=== PATIENT | male | born 1985 | race Hispanic/Latino ===

== ENCOUNTER 2017-04-27 13:09 | Emergency (ER) | payer SELFPAY ==
[2017-04-27 13:48] LABS: BASOPHILS % (AUTO) 0.4 % (0.0-5.0); HEMATOCRIT 43.9 % (42-54); LYMPHOCYTES % (AUTO) 16.5 % (21.0-51.0); MEAN CORPUSCULAR HEMOGLOBIN 30.5 pg (27.0-33.0); MEAN CORPUSCULAR HGB CONC 34.1 g/dL (32.0-36.0); MEAN CORPUSCULAR VOLUME 89.4 fL (79-99); MONOCYTES % (AUTO) 8.2 % (3.0-13.0); NEUTROPHILS % (AUTO) 74.9 % (40.0-77.0); PLATELET COUNT (AUTO) 227 K/uL (130-400); RED BLOOD CELL COUNT(AUTO) 4.92 MIL/uL (4.50-6.20); RED CELL DISTRIBUTION WIDTH 13.3 % (11.0-15.5); WHITE BLOOD COUNT (AUTO) 9.9 K/uL (4.8-10.8)
[2017-04-27] MEDS ORDERED: ONDANSETRON HCL MDV 20ML 2 MG/ML VIAL ONE (13:49)
[2017-04-27 13:57] LABS: CARBON DIOXIDE 27 mmol/L (21-32); CHLORIDE 102 mmol/L (101-111); GLOMERULAR FILTR. RATE CALC 93 mL/min (>60); GLUCOSE,RANDOM 102 mg/dL (70-105); POTASSIUM 3.4 mmol/L (3.5-5.1); SODIUM SERUM 140 mmol/L (136-145); UREA NITROGEN, BLOOD 15 mg/dL (7-18)
[2017-04-27 14:01] LABS: ALANINE AMINOTRANSFERASE 17 U/L (12-78); ALBUMIN 4.6 g/dL (3.5-5.0); ASPARTATE AMINOTRANSFERASE 16 U/L (10-37); BILIRUBIN,TOTAL 0.8 mg/dL (0.2-1.0); TOTAL PROTEIN, SERUM 8.5 g/dL (6.0-8.3)
[2017-04-27] MEDS ORDERED: IOPAMIDOL-370 75 ML VIAL IV ONE (14:06)
[2017-04-27 14:12] LABS: LIPASE < 50 U/L (114-286)
[2017-04-27 15:13] LABS: APPEARANCE,URINE Clear (CLEAR); BILIRUBIN,URINE Negative (NEGATIVE); COLOR,URINE Yellow (YELLOW); GLUCOSE, URINE (UA) Negative (NEGATIVE); KETONES,URINE >=80 mg/dL (NEGATIVE); LEUKOCYTE ESTERASE ,URINE Negative (NEGATIVE); NITRATE,URINE Negative (NEGATIVE); OCCULT BLOOD,URINE Negative (NEGATIVE); PROTEIN,URINE Negative (NEGATIVE)
== END 2017-04-27 15:46 | disposition home or self-care (01) ==
LOC: EDH 13:09
DX: R11.2 Nausea with vomiting, unspecified (principal); R10.11 Right upper quadrant pain; R10.31 Right lower quadrant pain; Z88.8 Allergy status to other drugs, medicaments and biological substances
CPT/HCPCS: 36415; 74177; 80053; 81003; 83690; 85025; 96361; 96374; 99285; Q9967

== ENCOUNTER 2017-07-13 22:43 | Emergency (ER) | payer SELFPAY ==
[2017-07-13] MEDS ORDERED: IPRATROPIUM/ALBUTEROL SULFATE 3 ML SOLUTION IH ONE (23:14)
[2017-07-13] MEDS ORDERED: DEXAMETHASONE SOD PHOSPHATE 10MG/ML 1ML VIAL ONE (23:15)
[2017-07-13] MEDS ORDERED: ALBUTEROL SULFATE 0.083% 2.5 MG/3 ML INH IH ONE (23:28)
[2017-07-14] MEDS ORDERED: LIDOCAINE HCL-MPF 1% 2ML VIAL ONE (00:38)
[2017-07-14] MEDS ORDERED: CEFTRIAXONE SODIUM 1 GM ONE (00:38)
== END 2017-07-14 00:57 | disposition home or self-care (01) ==
LOC: EDH 22:43
DX: R05 Cough (principal); R06.2 Wheezing; R50.81 Fever presenting with conditions classified elsewhere; Z72.0 Tobacco use
CPT/HCPCS: 71045; 94640 ×2; 96372 ×2; 99284; J0696; J1100; J3490

== ENCOUNTER 2018-02-19 20:32 | Emergency (ER) | payer OTHER ==
[2018-02-19] MEDS ORDERED: GUAIFENESIN SUGAR-FREE 100 MG/5 ML UDCUP ONE (20:50)
[2018-02-19] MEDS ORDERED: DEXAMETHASONE SOD PHOSPHATE 10MG/ML 1ML VIAL ONE (20:51)
[2018-02-19] MEDS ORDERED: ACETAMINOPHEN EXTRA STRENGTH 500 MG TABLET ONE (20:52)
[2018-02-19] MEDS ORDERED: IPRATROPIUM/ALBUTEROL SULFATE 3 ML SOLUTION IH ONE (20:54)
== END 2018-02-19 22:11 | disposition home or self-care (01) ==
LOC: EDH 20:32
DX: J20.9 Acute bronchitis, unspecified (principal); F41.9 Anxiety disorder, unspecified; Z98.890 Other specified postprocedural states
CPT/HCPCS: 71046; 87804 ×2; 94640; 96372; 99284; J1100

== ENCOUNTER 2018-10-10 16:52 | Emergency (ER) | payer SELFPAY ==
[2018-10-10] MEDS ORDERED: ACETAMINOPHEN EXTRA STRENGTH 500 MG TABLET ONE (17:31)
[2018-10-10] MEDS ORDERED: SODIUM CHLORIDE 0.9% 1000ML 2,000 ML IV ONE (17:31)
[2018-10-10 17:47] LABS: APPEARANCE,URINE Clear (CLEAR); BILIRUBIN,URINE Negative (NEGATIVE); COLOR,URINE Yellow (YELLOW); GLUCOSE, URINE (UA) Negative (NEGATIVE); KETONES,URINE 40 mg/dL (NEGATIVE); LEUKOCYTE ESTERASE ,URINE Negative (NEGATIVE); NITRATE,URINE Negative (NEGATIVE); OCCULT BLOOD,URINE Small (NEGATIVE); PROTEIN,URINE Negative (NEGATIVE)
[2018-10-10 17:51] LABS: BASOPHILS % (AUTO) 0.3 % (0.0-5.0); HEMATOCRIT 39.5 % (42-54); LYMPHOCYTES % (AUTO) 7.5 % (21.0-51.0); MEAN CORPUSCULAR HGB CONC 34.1 g/dL (32.0-36.0); MONOCYTES % (AUTO) 11.4 % (3.0-13.0); NEUTROPHILS % (AUTO) 80.8 % (40.0-77.0); PLATELET COUNT (AUTO) 264 K/uL (130-400); RED BLOOD CELL COUNT(AUTO) 4.49 MIL/uL (4.50-6.20); RED CELL DISTRIBUTION WIDTH 12.7 % (11.0-15.5); WHITE BLOOD COUNT (AUTO) 17.2 K/uL (4.8-10.8)
[2018-10-10 17:55] LABS: CREATININE 1.2 mg/dL (0.5-1.5); POTASSIUM 3.7 mmol/L (3.5-5.1)
[2018-10-10 17:59] LABS: ALBUMIN 4.1 g/dL (3.5-5.0); BACTERIA,URINE Few /HPF (None Seen); BILIRUBIN,TOTAL 0.7 mg/dL (0.2-1.0); SQUAMOUS EPITHELIAL CELL,UR 0-2 /HPF (0-2); TOTAL PROTEIN, SERUM 8.7 g/dL (6.0-8.3)
[2018-10-10] MEDS ORDERED: METOCLOPRAMIDE 10 MG/2 ML VIAL ONE (19:29)
[2018-10-10] MEDS ORDERED: LEVOFLOXACIN 500 MG TABLET ONE (21:02)
[2018-10-12 07:15] LABS: HEPATITIS A ANTIBODY IGM Negative (Negative); HEPATITIS B CORE IGM Negative (Negative); HEPATITIS Bs ANTIGEN SCREEN P Negative (Negative)
== END 2018-10-10 21:16 | disposition home or self-care (01) ==
LOC: EDH 16:52
DX: E86.9 Volume depletion, unspecified (principal); D72.829 Elevated white blood cell count, unspecified; R19.7 Diarrhea, unspecified; R50.9 Fever, unspecified; F41.9 Anxiety disorder, unspecified; Z98.890 Other specified postprocedural states; Z72.0 Tobacco use; Z88.1 Allergy status to other antibiotic agents
CPT/HCPCS: 36415; 71045; 80053; 80074; 81001; 82550; 83605; 83630; 85025; 86701; 87040 ×2; 87324; 87390; 87804 ×2; 96361; 96374; 99285; J2765; J7030

== ENCOUNTER 2019-06-13 13:46 | Inpatient (IN) | payer OTHER ==
[~2019-06-13] VITALS: Ht 175.3 cm; Wt 53.3 kg
[2019-06-13] MEDS ORDERED: ZOSYN 3.375GM+NS 50ML 50 ML IV ONE (14:07)
[2019-06-13] MEDS ORDERED: ACETAMINOPHEN EXTRA STRENGTH 500 MG TABLET ONE (14:18)
[2019-06-13 14:21] LABS: APPEARANCE,URINE Clear (CLEAR); BILIRUBIN,URINE Moderate (NEGATIVE); COLOR,URINE Dark Yellow (YELLOW); GLUCOSE, URINE (UA) Negative (NEGATIVE); KETONES,URINE >=80 mg/dL (NEGATIVE); LEUKOCYTE ESTERASE ,URINE Trace (NEGATIVE); NITRATE,URINE Positive (NEGATIVE); OCCULT BLOOD,URINE Small (NEGATIVE); PH,URINE 5.5 (5.0-8.0); PROTEIN,URINE POS 1+ mg/dL (NEGATIVE)
[2019-06-13 14:34] LABS: BACTERIA,URINE Moderate /HPF (None Seen); MUCUS,URINE Many LPF (None Seen); SQUAMOUS EPITHELIAL CELL,UR Moderate /HPF (0-2)
[2019-06-13 14:35] LABS: BASOPHILS % (AUTO) 0.2 % (0.0-5.0); HEMATOCRIT 40.6 % (42-54); LYMPHOCYTES % (AUTO) 7.5 % (21.0-51.0); MEAN CORPUSCULAR HEMOGLOBIN 29.9 pg (27.0-33.0); MEAN CORPUSCULAR VOLUME 87.9 fL (79-99); NEUTROPHILS % (AUTO) 83.5 % (40.0-77.0); PLATELET COUNT (AUTO) 314 K/uL (130-400); RED BLOOD CELL COUNT(AUTO) 4.62 MIL/uL (4.50-6.20); RED CELL DISTRIBUTION WIDTH 11.9 % (11.0-15.5); WHITE BLOOD COUNT (AUTO) 15.8 K/uL (4.8-10.8)
[2019-06-13 14:47] LABS: CARBON DIOXIDE 24 mmol/L (21-32); CHLORIDE 93 mmol/L (101-111); CREATININE 1.3 mg/dL (0.5-1.5); GLOMERULAR FILTR. RATE CALC 68 mL/min (>60); GLUCOSE,RANDOM 134 mg/dL (70-105); POTASSIUM 3.4 mmol/L (3.5-5.1); SODIUM SERUM 131 mmol/L (136-145); UREA NITROGEN, BLOOD 19 mg/dL (7-18)
[2019-06-13 14:48] LABS: INR 1.05 (0.85-1.15); PARTIAL THROMBOPLASTIN TIME 32.9 SEC (26.3-35.5); PROTHROMBIN TIME 11.3 SEC (9.6-11.6)
[2019-06-13 14:59] LABS: ALANINE AMINOTRANSFERASE 25 U/L (12-78); ALBUMIN 3.9 g/dL (3.5-5.0); ASPARTATE AMINOTRANSFERASE 31 U/L (10-37); BILIRUBIN,TOTAL 0.5 mg/dL (0.2-1.0); CREATINE KINASE, TOTAL 179 U/L (21-232); MYOGLOBIN 20 ng/mL (10-92); TOTAL PROTEIN, SERUM 9.4 g/dL (6.0-8.3); TROPONIN I < 0.04 ng/mL (0.00-0.06)
[2019-06-13] MEDS ORDERED: MORPHINE SULFATE 2 MG/ML 1ML SYG IVP PRN (19:00)
[2019-06-13 19:30] VITALS: BP 124/80
--- NOTE | 2019-06-13 19:30 | NUR ---
admission PT TRANSFERRED FROM ER INTO ROOM 313, AWAKE, ALERT AND VERBALLY RESPONSIVE. NO C/O PAIN OR DISCOMFORT AT THIS TIME. PT ORIENTED TO [facility], CALL PARRA WITHIN REACH, BED IN LOWEST POSITION. Addendum: 06/13/19 at 2124 by RICHIE SHOEMAKER RN Amended: Links added.
[2019-06-13] MEDS: ZOSYN 3.375GM+NS 50ML 50 ML IV SCH (20:53)
[2019-06-13] MEDS: SODIUM CHLORIDE 0.9% 1000ML 1,000 ML IV SCH (20:54)
[2019-06-13 23:57] VITALS: BP 125/79
[2019-06-14] MEDS ORDERED: ONDANSETRON HCL 4 MG/2 ML VIAL ONE (00:43)
[2019-06-14 03:58] VITALS: BP 113/67
[2019-06-14] MEDS: SODIUM CHLORIDE 0.9% 1000ML 1,000 ML IV SCH ×3 (04:16→23:13)
[2019-06-14 04:26] LABS: HEMATOCRIT 34.9 % (42-54); MEAN CORPUSCULAR HEMOGLOBIN 28.6 pg (27.0-33.0); MEAN CORPUSCULAR HGB CONC 32.4 g/dL (32.0-36.0); MEAN CORPUSCULAR VOLUME 88.4 fL (79-99); RED BLOOD CELL COUNT(AUTO) 3.95 MIL/uL (4.50-6.20); RED CELL DISTRIBUTION WIDTH 11.9 % (11.0-15.5); WHITE BLOOD COUNT (AUTO) 15.5 K/uL (4.8-10.8)
[2019-06-14] MEDS: ZOSYN 3.375GM+NS 50ML 50 ML IV SCH ×3 (04:32→20:09)
[2019-06-14 04:37] LABS: CREATININE 0.9 mg/dL (0.5-1.5); POTASSIUM 4.5 mmol/L (3.5-5.1)
[2019-06-14 07:22] VITALS: BP 116/72
[2019-06-14] MEDS: ACETAMINOPHEN 325 MG TAB PO PRN ×2 (09:16→20:09)
[2019-06-14] MEDS: PANTOPRAZOLE SODIUM 40 MG TABLET.DR PO SCH (09:16)
[2019-06-14] MEDS: ONDANSETRON HCL 4 MG/2 ML VIAL IVP PRN ×2 (09:27→18:11)
[2019-06-14 10:43] VITALS: BP 110/50
[2019-06-14 15:34] VITALS: BP 107/60
--- NOTE | 2019-06-14 16:13 | NUR ---
Reviewed labs and elevated temperatures in spite of acetaminophen administrations with Dr. Ceballos. Patient denies cough, congestion or abdominal pain but does report nausea. Informed Dr. Ceballos that according to patient's mother, patient's grandmother fatally succumbed to covid -19 recently at longterm. Patient reports having had no contact with grandmother. Per Dr. Ceballos, patient is not suspected of Covid, no covid testing to be performed. Received order for Rickettsia panel, Infectious Disease consult, Doxycycline 100 mg IV Q12h.
--- NOTE | 2019-06-14 16:14 | NUR ---
DC PLAN VISITED WITH PATIENT. PATIENT LIVES WITH MOM. INDEPENDENT ABLE TO PERFORM ADL'S. PATIENT HAS NO SERVICES OR DME'S. FEELS SAFE TO RETURN HOME. Addendum: 06/14/19 at 1616 by BRANDEN ADAM RN CM Amended: Links added.
[2019-06-14] MEDS: DOXYCYCLINE 100MG+NS 250ML 250 ML IV SCH (18:11)
[2019-06-14 20:00] VITALS: BP 116/61
[2019-06-15] VITALS (7 sets, daily range): BP systolic 98–124; BP diastolic 54–84
[2019-06-15] MEDS: ONDANSETRON HCL 4 MG/2 ML VIAL IVP PRN (01:40)
[2019-06-15] MEDS: DOXYCYCLINE 100MG+NS 250ML 250 ML IV SCH ×2 (03:52→16:50)
[2019-06-15] MEDS: ZOSYN 3.375GM+NS 50ML 50 ML IV SCH ×3 (04:58→20:49)
[2019-06-15] MEDS: SODIUM CHLORIDE 0.9% 1000ML 1,000 ML IV SCH ×3 (06:37→22:40)
[2019-06-15] MEDS: PANTOPRAZOLE SODIUM 40 MG TABLET.DR PO SCH (08:34)
[2019-06-15] MEDS: ACETAMINOPHEN 325 MG TAB PO PRN ×3 (08:34→20:49)
[2019-06-15] MEDS ORDERED: IBUPROFEN 400 MG TABLET PO PRN (13:00)
--- NOTE | 2019-06-15 19:27 | NUR ---
Notified Dr. Ceballos of CT Scan of chest results. No orders received for screening at this time.
[2019-06-16 03:40] VITALS: BP 123/81
[2019-06-16] MEDS: DOXYCYCLINE 100MG+NS 250ML 250 ML IV SCH ×2 (03:47→17:28)
[2019-06-16] MEDS: SODIUM CHLORIDE 0.9% 1000ML 1,000 ML IV SCH ×3 (04:13→20:13)
[2019-06-16] MEDS: ZOSYN 3.375GM+NS 50ML 50 ML IV SCH ×3 (04:13→20:12)
--- NOTE | 2019-06-16 08:10 | NUR ---
NOTE AAOX3. DENIES PAIN OR DISCOMFORT. BBS CLEAR. NO SOB OR CHEST PAIN REPORTED. ROOM AIR O2. NO DISTRESS NOTED. SEEMED A LITTLE WINDED BUT STATES FROM FEELING TIRED AND HE HAS NOT BEEN EATING WELL. NO COUGH NO PHLEGM. HE HAD CT SCAN CHEST ABNORMAL FINDINGS.
[2019-06-16 08:54] VITALS: BP 108/72
[2019-06-16] MEDS: PANTOPRAZOLE SODIUM 40 MG TABLET.DR PO SCH (09:11)
[2019-06-16 11:34] LABS: HEMATOCRIT 35.9 % (42-54); MEAN CORPUSCULAR HEMOGLOBIN 28.8 pg (27.0-33.0); MEAN CORPUSCULAR HGB CONC 33.1 g/dL (32.0-36.0); MEAN CORPUSCULAR VOLUME 86.9 fL (79-99); RED BLOOD CELL COUNT(AUTO) 4.13 MIL/uL (4.50-6.20); WHITE BLOOD COUNT (AUTO) 14.5 K/uL (4.8-10.8)
[2019-06-16 11:44] LABS: POTASSIUM 3.8 mmol/L (3.5-5.1)
[2019-06-16 11:59] VITALS: BP 113/76
[2019-06-16] MEDS: ACETAMINOPHEN 325 MG TAB PO PRN ×2 (14:09→20:13)
[2019-06-16 16:35] VITALS: BP 108/61
--- NOTE | 2019-06-16 17:40 | NUR ---
NOTE SPOKE TO DR MANJARREZ ABOUT RESULTS FROM CT SCAN AND PATIENT'S MOTHER NEEDING TO SPEAK TO HIM REGARDING PLAN OF CARE AND REASON FOR CONTINUING FEVERS. I ALSO SPOKE TO DR KRISHNAMURTHY ABOUT ABNORMAL RESULTS FROM CT SCAN AND HE DID NOT WANT TO ORDER ANYTHING NEW.
--- NOTE | 2019-06-16 20:13 | NUR ---
FEVER Pt medicated with Tylenol for fever.Encouraged to increase fluid intake.
[2019-06-16 20:50] VITALS: BP 119/68
[2019-06-17] VITALS (7 sets, daily range): BP systolic 111–127; BP diastolic 63–83
[2019-06-17] MEDS: DOXYCYCLINE 100MG+NS 250ML 250 ML IV SCH ×2 (04:06→19:12)
[2019-06-17] MEDS: ACETAMINOPHEN 325 MG TAB PO PRN (04:06)
[2019-06-17] MEDS: ZOSYN 3.375GM+NS 50ML 50 ML IV SCH (05:19)
--- NOTE | 2019-06-17 06:25 | NUR ---
C DIFF Pt states he had 3 loose stools last night,specimen sent to lab for c diff.
[2019-06-17] MEDS: PANTOPRAZOLE SODIUM 40 MG TABLET.DR PO SCH (10:10)
[2019-06-17] MEDS: SODIUM CHLORIDE 0.9% 1000ML 1,000 ML IV SCH ×2 (10:10→20:52)
[2019-06-17] MEDS: MEROPENEM 1 GM VIAL IVP SCH ×2 (13:41→20:52)
[2019-06-17] MEDS: METHYLPREDNISOLONE SOD SUCC 40MG/ML 1ML IVP SCH (13:42)
--- NOTE | 2019-06-17 17:36 | NUR ---
Nutrition Intervention: Nutrition screen based on BMI 17.4. Pt. on Regualr diet. Pt. reports eating ~40% of his meals; states appetite slowly improving. Pt. requesting Chocolate Ensure supp. with meals. Labs reviewed(Na 133, Alb 3.9). SR-22, elastic. LBM: 06/16/2019. BMI: 17.4, underweight. Recommendations: 1) Rec. Chocolate Ensure TID with meals. 2) Continue to monitor pt's nutritional status. 3) Consult RD as nutrition concerns arise. Addendum: 06/17/19 at [address] Amended: Links added.
[2019-06-18] MEDS: MEROPENEM 1 GM VIAL IVP SCH ×3 (03:11→20:31)
[2019-06-18 04:00] VITALS: BP 124/79
[2019-06-18] MEDS: DOXYCYCLINE 100MG+NS 250ML 250 ML IV SCH ×2 (04:06→16:00)
[2019-06-18] MEDS: SODIUM CHLORIDE 0.9% 1000ML 1,000 ML IV SCH ×3 (04:30→23:40)
--- NOTE | 2019-06-18 05:30 | NUR ---
STATUS Pt.awake,alert,states he feels better and asking when he's going to leave.Pt.s been afebrile.
[2019-06-18 07:30] VITALS: BP 124/76
[2019-06-18] MEDS: PANTOPRAZOLE SODIUM 40 MG TABLET.DR PO SCH (09:29)
[2019-06-18 11:00] VITALS: BP 133/88
[2019-06-18] MEDS: METHYLPREDNISOLONE SOD SUCC 40MG/ML 1ML IVP SCH (11:30)
[2019-06-18 16:00] VITALS: BP 129/76
[2019-06-18 16:09] LABS: ROCKY MT SPOTTED FEVER IGG <1:64 (Neg:<1:64); TYPHUS FEVER AB IGG <1:64 (Neg:<1:64)
[2019-06-18 17:36] LABS: HEMATOCRIT 36.3 % (42-54); MEAN CORPUSCULAR HEMOGLOBIN 29.4 pg (27.0-33.0); MEAN CORPUSCULAR HGB CONC 34.4 g/dL (32.0-36.0); MEAN CORPUSCULAR VOLUME 85.4 fL (79-99); RED BLOOD CELL COUNT(AUTO) 4.25 MIL/uL (4.50-6.20); RED CELL DISTRIBUTION WIDTH 12.1 % (11.0-15.5); WHITE BLOOD COUNT (AUTO) 16.9 K/uL (4.8-10.8)
[2019-06-18 17:51] LABS: CREATININE 0.9 mg/dL (0.5-1.5); POTASSIUM 3.3 mmol/L (3.5-5.1)
[2019-06-18 19:18] VITALS: BP 117/81
[2019-06-18 23:19] VITALS: BP 120/86
--- NOTE | 2019-06-19 00:27 | NUR ---
SLEEP Pt.states he's trying to get some sleep.Denies any pain or discomfort.
[2019-06-19] MEDS: MEROPENEM 1 GM VIAL IVP SCH ×2 (03:37→09:30)
[2019-06-19 03:39] VITALS: BP 120/84
[2019-06-19] MEDS: DOXYCYCLINE 100MG+NS 250ML 250 ML IV SCH (04:43)
[2019-06-19 07:54] VITALS: BP 126/83
[2019-06-19] MEDS: PANTOPRAZOLE SODIUM 40 MG TABLET.DR PO SCH (08:03)
[2019-06-19 11:00] VITALS: BP 132/84
[2019-06-19] MEDS: METHYLPREDNISOLONE SOD SUCC 40MG/ML 1ML IVP SCH (11:20)
[2019-06-19] MEDS: SODIUM CHLORIDE 0.9% 1000ML 1,000 ML IV SCH (11:20)
--- NOTE | 2019-06-19 14:01 | NUR ---
CALLED DR MANJARREZ TO LET HIM KNOW THAT DR KRISHNAMURTHY GAVE TO OK TO GO HOME. NO ANSWER, VOICE MAIL RECORDED. WAITING TITLE I TEACHER BACK. PATIENT IS ANXIOUS TO LEAVE.
[2019-06-19 16:30] VITALS: BP 123/73
== END 2019-06-19 17:40 | disposition home or self-care (01) | DRG 872 ==
LOC: EDH 13:46 → EDHIP 13:47 → 3CH 19:33
PROVIDERS: ADMIT Internal Medicine; ATTEND Internal Medicine
DX: A41.9 Sepsis, unspecified organism (principal); N12 Tubulo-interstitial nephritis, not specified as acute or chronic; E87.1 Hypo-osmolality and hyponatremia; A79.9 Rickettsiosis, unspecified; N32.3 Diverticulum of bladder; Z59.0 Homelessness; Z87.442 Personal history of urinary calculi; Z88.8 Allergy status to other drugs, medicaments and biological substances; B34.9 Viral infection, unspecified
CPT/HCPCS: 36415; 71045; 71250; 74176; 80048; 80053; 81001; 82550; 83605; 83874; 84145; 84484; 85025; 85027; 85610; 85730; 86701; 86757; 87040; 87088; 87390; 87493; 93005; G0378; J2185; J2405; J2543; J2920; J3490; J7030